=== PATIENT | female | born 1995 | race African-American/Black ===

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

== ENCOUNTER 2017-01-30 11:28 | Emergency (ER) | payer SELFPAY ==
[~2017-01-30] VITALS: Ht 162.6 cm; Wt 63.0 kg
[~2017-01-30 11:28] MED LIST changes: +IBUP-232 PO; -IRON27TA PO; +ROBA500T PO
[2017-01-30 11:30] VITALS: BP 117/59; PULSE 110; RESP 20; TEMP 98.7; O2SAT 100
--- NOTE | 2017-01-30 11:41 | PD ---
Physical Exam Date Seen by Provider: Jan 30, 2017 Time Seen by Provider: 11:39 Narrative 21 yo female here for nail injury. Happened today. Unclear as to what happened as patient on the phone. Has a fake nail on top of it and it appears some of the real nail might be off but hard to asses from triage. Vitals are stable in triage. Awaiting bed placement. Data Data Last Documented VS Vital Signs Date Time Temp Pulse Resp B/P (MAP) Pulse Ox O2 Delivery O2 Flow Rate FiO2 01/30/17 11:30 98.7 110 20 117/59 (78) 100 Room Air [facility] Medical Record Reviewed: Yes Supervised Visit with NEGRO: No Dima Tamayo Jan 30, 2017 11:41
[2017-01-30] MEDS ORDERED: IBUP800T23 PO (12:46)
--- NOTE | 2017-01-30 12:52 | PD ---
HPI Chief Complaint: Injury Time Seen by Provider: 12:45 Travel History International Travel<30 days: No Contact w/Intl Traveler<30days: No Traveled to known affect area: No History of Present Illness HPI 21-year-old female presents to the emergency Department with complaint of her fingernail came off her thumb after slamming it in a car door today. Denies paresthesias, loss of sensation, decreased range of motion to the affected finger. Has not taken any medications to alleviate her symptoms. Has her finger in a cup of ice water for symptom management. Has no other medical complaints. Symptoms are moderate in severity. Allergies to fish containing products, Benadryl, penicillin. No other modifying factors or associated signs and symptoms. PFSH Past Medical History Anemia: Yes Diminished Hearing: No LMP: 01/01 Social History Alcohol Use: No Tobacco Use: No Substance Use: No Allergies-Medications (Allergen,Severity, Reaction): Coded Allergies: Fish Containing Products (Verified Allergy, Severe, Anaphylaxis, 01/30/17) diphenhydramine (Verified Allergy, Severe, 01/30/17) penicillin G (Verified Allergy, Severe, 01/30/17) Reported Meds & Prescriptions Reported Meds & Active Scripts Active Clindamycin (Clindamycin HCl) 150 Mg Cap 300 Mg PO Q8HR 7 Days Ibuprofen 800 Mg Tab 800 Mg PO Q6HR PRN Robaxin (Methocarbamol) 500 Mg Tab 500 Mg PO QID PRN Ibuprofen 600 Mg Tab 600 Mg PO Q8HR PRN Review of Systems Except as stated in HPI: all other systems reviewed are Neg Physical Exam Narrative GENERAL: Well-nourished, well-developed female patient, in no acute distress SKIN: Warm and dry. Fingernail of left thumb is completely avulsed and intact at the base; thumb is with full range of motion and sensory intact; no obvious deformity; thumb without edema, erythema, ecchymosis. HEAD: Atraumatic. Normocephalic. EYES: Pupils equal and round. No scleral icterus. No injection or drainage. ENT: Mucosa pink and moist. Airway patent. NECK: Trachea midline. CARDIOVASCULAR: Regular rate. RESPIRATORY: No accessory muscle use. GASTROINTESTINAL: Flat. MUSCULOSKELETAL: No obvious deformities. No clubbing. No cyanosis. No edema. NEUROLOGICAL: Awake and alert. Oriented 3. No obvious cranial nerve deficits. Motor grossly within normal limits. Normal speech. PSYCHIATRIC: Appropriate mood and affect; insight and judgment normal. Data Data Last Documented VS Vital Signs Date Time Temp Pulse Resp B/P (MAP) Pulse Ox O2 Delivery O2 Flow Rate FiO2 01/30/17 14:15 01/30/17 11:30 98.7 110 20 100 Room Air Orders Orders Bupivacaine Pf 0.5% Inj (Marcaine Pf 0.5 (01/30/17 13:00) Lidocaine 1% Inj (50 Ml) (Xylocaine 1% I (01/30/17 13:00) Ibuprofen (Motrin) (01/30/17 13:00) MDM Medical Decision Making Medical Screen Exam Complete: Yes Emergency Medical Condition: Yes Medical Record Reviewed: Yes Differential Diagnosis Nail avulsion, thumb fracture, crush injury Narrative Course 21-year-old female with an avulsed nail to the left thumb. I offered to do an x -ray of the thumb to rule out fracture and the patient declined. See my procedure note for fingernail replacement. Ibuprofen and clindamycin prescribed for home. Instructed patient to follow up with primary care provider. Patient verbalizes understanding and agreement with treatment plan. Patient is medically cleared and stable for discharge. Discussed reasons to return to the emergency department. Patient agrees with treatment plan. The patients vital signs are stable and the patient is stable for outpatient follow- up and treatment. Patient discharged home, stable and in no acute distress. Procedures Procedure Narrative Nail avulsion repair: The left thumb was digitally blocked using 1% lidocaine and 0.5% bupivacaine. The nail was secured to the nailbed with Dermabond and 2 6-0 Prolene stitches to each side of the nail. Patient tolerated well. Diagnosis Primary Impression: Nail avulsion, finger Qualified Codes: S61.309A - Unspecified open wound of unspecified finger with damage to nail, initial encounter Referrals: [facility] Primary Care Physician Patient Instructions: General Instructions, Nail Avulsion (ED) Departure Forms: School Release, Return to School Date: Jan 31, 2017 Tests/Procedures, Work Release Enter return to work date: Jan 31, 2017 Additional Instructions: Finger splint to keep finger nail protected Ibuprofen or Tylenol as directed and as needed for pain and inflammation Ice to affected finger as needed to decrease pain and inflammation Return to the emergency department or follow-up with primary care provider in 14 days for suture removal from the fingernail Follow-up with primary care provider Return to the emergency department immediately if worsening of symptoms Med/Other Pt SpecificInfo: Prescription(s) given Scripts Clindamycin (Clindamycin) 150 Mg Cap 300 MG PO Q8HR for Infection for 7 Days, CAP 0 Refills Prov: Kimberly Chicas 01/30/17 Ibuprofen (Ibuprofen) 800 Mg Tab 800 MG PO Q6HR Y for PAIN, #30 TAB 0 Refills Prov: Kimberly Chicas 01/30/17 Disposition: 01 DISCHARGE HOME Condition: Stable Kimberly Chicas Jan 30, 2017 12:52
[2017-01-30] MEDS ORDERED: IBUPROFEN 800 MG TAB PO ONE (13:00)
[2017-01-30] MEDS ORDERED: BUPIVACAINE HCL PF 0.5% 10 ML VIAL INFIL ONE (13:00)
[2017-01-30] MEDS ORDERED: LIDOCAINE HCL 1% 50 ML VIAL INFIL ONE (13:00)
[2017-01-30] MEDS ORDERED: CLIN1CAP5 PO (14:10)
== END 2017-01-30 14:20 | disposition home or self-care (01) ==
LOC: NEPK 11:28
DX: S61.102A Unspecified open wound of left thumb with damage to nail, initial encounter (principal); W23.0XXA Caught, crushed, jammed, or pinched between moving objects, initial encounter
CPT/HCPCS: 11760